=== PATIENT | male | born 1995 | race African-American/Black ===

== ENCOUNTER 2021-07-26 21:32 | Emergency (ER) | payer OTHER ==
[~2021-07-26] VITALS: Ht 190.5 cm; Wt 99.8 kg
[2021-07-26 22:18] VITALS: BP 138/77
== END 2021-07-26 22:20 | disposition home or self-care (01) ==
LOC: ER 21:32
DX: S63.297A Dislocation of distal interphalangeal joint of left little finger, initial encounter (principal); W21.05XA Struck by basketball, initial encounter; Y93.67 Activity, basketball; Y92.89 Other specified places as the place of occurrence of the external cause; Y99.8 Other external cause status